=== PATIENT | female | born 1975 | race Caucasian/White ===

== ENCOUNTER 2023-05-29 09:14 | Outpatient (CLI) | payer BC | END 2023-05-29 09:15 | disposition home or self-care (01) | LOC: CSHCT 09:14 | PROVIDERS: ATTEND Family Medicine | DX: N20.0 Calculus of kidney (principal); N28.9 Disorder of kidney and ureter, unspecified; R19.00 Intra-abdominal and pelvic swelling, mass and lump, unspecified site; N63.10 Unspecified lump in the right breast, unspecified quadrant | CPT/HCPCS: 74176 ==

== ENCOUNTER 2023-06-06 10:28 | Outpatient (CLI) | payer BC ==
[2023-06-06] MEDS ORDERED: Iopamidol 300 61% 100 ML VIAL FS ONE (10:34)
== END 2023-06-06 10:29 | disposition home or self-care (01) ==
LOC: CSHCT 10:28
PROVIDERS: ATTEND Family Medicine
DX: N28.1 Cyst of kidney, acquired (principal)
CPT/HCPCS: 74178; Q9967

== ENCOUNTER 2023-07-10 12:11 | Outpatient (CLI) | payer BC | END 2023-07-10 12:12 | disposition home or self-care (01) | LOC: CSHMAMMO 12:11 | PROVIDERS: ATTEND Family Medicine | DX: Z12.31 Encounter for screening mammogram for malignant neoplasm of breast (principal); Z80.3 Family history of malignant neoplasm of breast | CPT/HCPCS: 77063; 77067 ==